=== PATIENT | male | born 1960 | race Caucasian/White ===

== ENCOUNTER 2017-10-14 06:48 | Day surgery (SDC) | payer OTHER ==
[2017-10-14] MEDS ORDERED: LIDOCAINE 2% INJ 100 MG/5 ML SDV (FOR ANES.) As Ordered (07:15)
[2017-10-14] MEDS ORDERED: PROPOFOL 200 MG/20 ML VIAL As Ordered (07:20)
[2017-10-14] MEDS ORDERED: NS 1,000 ML IV (07:45)
== END 2017-10-14 08:22 | disposition home or self-care (01) ==
LOC: M OPP 06:48
DX: Z12.11 Encounter for screening for malignant neoplasm of colon (principal); D12.5 Benign neoplasm of sigmoid colon; K57.30 Diverticulosis of large intestine without perforation or abscess without bleeding; I10 Essential (primary) hypertension; L71.9 Rosacea, unspecified; K59.4 Anal spasm; Z80.0 Family history of malignant neoplasm of digestive organs; Z80.8 Family history of malignant neoplasm of other organs or systems; Z91.040 Latex allergy status; Z88.7 Allergy status to serum and vaccine; Z79.899 Other long term (current) drug therapy
CPT/HCPCS: 45385

== ENCOUNTER 2023-01-28 09:14 | Day surgery (SDC) | payer OTHER ==
[~2023-01-28] VITALS: Ht 170.2 cm; Wt 81.3 kg
[~2023-01-28 09:14] MED LIST: ATOR1TAB19 PO; DOXY100C3; FISH100049 PO; GLUC1CAP10 PO; LOSA25TA13; MULT-90 PO; MULT1TAB10 PO; NS 1,000 ML IV ONE; [UNRECOGNIZED DRUG - CODE] PO
[2023-01-28] MEDS ORDERED: LIDOCAINE 2% 100MG/5ML SDV (FOR ANES.) As Ordered ONE (10:24)
[2023-01-28] MEDS ORDERED: propofoL 200 MG/20 ML VIAL As Ordered ONE (10:24)
[2023-01-28 10:41] VITALS: TEMP 96.8
[2023-01-28 11:03] VITALS: BP 119/61; O2SAT 100
== END 2023-01-28 11:14 | disposition home or self-care (01) ==
LOC: M OPP 09:14
PROVIDERS: ATTEND Internal Medicine Gastroenterology
DX: Z12.11 Encounter for screening for malignant neoplasm of colon (principal); Z86.010 Personal history of colon polyps; Z80.0 Family history of malignant neoplasm of digestive organs; K64.8 Other hemorrhoids; K57.30 Diverticulosis of large intestine without perforation or abscess without bleeding; Z79.02 Long term (current) use of antithrombotics/antiplatelets; Z79.2 Long term (current) use of antibiotics; Z79.899 Other long term (current) drug therapy; Z88.7 Allergy status to serum and vaccine